=== PATIENT | female | born 1965 | race Caucasian/White ===

== ENCOUNTER → 2023-09-23 13:32 | Outpatient (REF) | payer BC, SELFPAY ==
--- NOTE | 2023-09-23 14:46 | CARDSERVLU ---
Echocardiogram with Lumason completed after protocol screening completed. Allergies verified.
Patent IV site: __left AC___
IV site flushed with 0.9% NaCl pre and post administration.
Diluted bolus method utilized to enhance visualization of ventricular phillips.
Total volume given: _2.0__ mL
Patient tolerated all procedures well without complications.
#22 fredy placed left AC. Lumason given. INT removed. dsg applied and pressure held.
== END ==
LOC: RCS 13:32
PROVIDERS: ATTENDING PHYSICIAN Internal Medicine Cardiovascular Disease; FAMILY PHYSICIAN Physician Assistant Medical
DX: I35.0 Nonrheumatic aortic (valve) stenosis (principal)
CPT/HCPCS: 93306; Q9950

== ENCOUNTER → 2024-09-11 15:51 | Outpatient (REF) | payer BC, SELFPAY | LOC: RCS 15:51 | PROVIDERS: ATTENDING PHYSICIAN Internal Medicine Cardiovascular Disease; FAMILY PHYSICIAN Physician Assistant Medical | DX: I35.0 Nonrheumatic aortic (valve) stenosis (principal) | CPT/HCPCS: 93306 ==

== ENCOUNTER → 2025-03-29 14:15 | Outpatient (REF) | payer BC, SELFPAY | LOC: RCS 14:15 | PROVIDERS: ATTENDING PHYSICIAN Internal Medicine Cardiovascular Disease; FAMILY PHYSICIAN Physician Assistant Medical | DX: I35.0 Nonrheumatic aortic (valve) stenosis (principal) | CPT/HCPCS: 93306 ==